=== PATIENT | female | born 2000 | race American Indian/Alaskan Native ===

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

== ENCOUNTER 2018-06-30 18:57 | Emergency (ER) | payer MEDICAID ==
[2018-06-30 19:34] VITALS: BP 120/67
--- NOTE | 2018-06-30 19:46 | Emergency Department Report ---
Blank Doc - Documentation Documentation: This is a 17-year-old female that presents with dizziness. Stated has intermi ttent SOB but denies any SOB now. Denies any chest pain. This initial assessment/diagnostic orders/clinical plan/treatment(s) is/are subject to change based on patient's health status, clinical progression and re- assessment by fellow clinical providers in the ED. Further treatment and workup at subsequent clinical providers discretion. Patient/guardians urged not to elope from the ED as their condition may be serious if not clinically assessed and managed. Initial orders include: 1- Patient sent to [facility] for further evaluation and treatment 2- labs
[2018-06-30 20:10] LABS: Basophils % (Auto) 0.4 % (0.0-1.8); Eosinophils # (Auto) 0.7 K/mm3 (0.0-0.4); Eosinophils % (Auto) 7.3 % (0.0-4.3); Hematocrit 35.8 % (30.3-42.9); Hemoglobin 11.9 gm/dl (10.1-14.3); Lymphocytes # (Auto) 2.5 K/mm3 (1.2-5.4); Lymphocytes % (Auto) 26.8 % (13.4-35.0); Mean Corpuscular HGB Conc 33 % (30-34); Mean Corpuscular Volume 89 fl (79-97); Monocytes # (Auto) 0.9 K/mm3 (0.0-0.8); Monocytes % (Auto) 9.2 % (0.0-7.3); Platelet Count 336 K/mm3 (140-440); Red Blood Count 4.02 M/mm3 (3.65-5.03); Red Cell Distribution Width 13.7 % (13.2-15.2)
[2018-06-30 20:36] LABS: BUN/Creatinine Ratio 14; Blood Urea Nitrogen 7 mg/dL (7-17); Calcium 8.9 mg/dL (8.4-10.2); Hemolysis Index 7
--- NOTE | 2018-06-30 21:19 | Emergency Department Report ---
ED Dysuria HPI - HPI Chief Complaint: Dyspnea/Respdistress Stated Complaint: SOB/DIZZINESS Time Seen by Provider: 06/30/18 19:44 Duration: 5 Days Severity: None Symptoms: Dysuria: No, Frequency: No, Suprapubic Pain: No, Flank Pain: No, Fever: No, Hematuria: No, Abdominal Pain: No, Previous UTI's: No Other History: Patient is a 17-year-old female comes to the ER today with vague complaints of not feeling well. She has asthma as a child. She's had no surgeries. She is on no home medications. She has no allergies to medications. Her last menstrual cycle was 2018. ED Review of Systems ROS: Stated complaint: SOB/DIZZINESS Other details as noted in HPI Comment: All other systems reviewed and negative ED Past Medical Hx - Past Medical History Previous Medical History?: Yes Hx Asthma: Yes - Surgical History Past Surgical History?: No - Family History Family history: no significant - Social History Smoking Status: Never Smoker Substance Use Type: None - Medications Home Medications: Home Medications Medication Instructions Recorded Confirmed Last Taken Type Butalb/Acetamin/Caff 50-325-40 1 tab PO Q8HR PRN #20 tablet 05/07/16 Unknown Rx [Fioricet] Ondansetron [Zofran ODT TAB] 4 mg PO Q8HR #12 tab.rapdis 05/07/16 Unknown Rx Dysuria Exam - Exam General: Vital signs noted. No distress. Alert and acting appropriately. Exam: Yes Moist Mucous Membranes, No CVA Tenderness, No Abdominal Tenderness, No Rigidity or Guarding Labs: Lab Results 06/30/18 06/30/18 06/30/18 Range/Units 19:53 19:53 19:53 WBC 9.5 (4.5-11.0) K/mm3 RBC 4.02 (3.65-5.03) M/mm3 Hgb 11.9 (10.1-14.3) gm/dl Hct 35.8 (30.3-42.9) % MCV 89 (79-97) fl MCH 30 (28-32) pg MCHC 33 (30-34) % RDW 13.7 (13.2-15.2) % Plt Count 336 (140-440) K/mm3 Lymph % (Auto) 26.8 (13.4-35.0) % [place] % (Auto) 9.2 H (0.0-7.3) % Eos % (Auto) 7.3 H (0.0-4.3) % Baso % (Auto) 0.4 (0.0-1.8) % Lymph # 2.5 (1.2-5.4) K/mm3 [place] # 0.9 H (0.0-0.8) K/mm3 Eos # 0.7 H (0.0-0.4) K/mm3 Baso # 0.0 (0.0-0.1) K/mm3 Seg Neutrophils % 56.3 (40.0-70.0) % Seg Neutrophils # 5.3 (1.8-7.7) K/mm3 Sodium 136 L (137-145) mmol/L Potassium 4.0 (3.6-5.0) mmol/L Chloride 101.3 (98-107) mmol/L Carbon Dioxide 24 (22-30) mmol/L Anion Gap 15 mmol/L BUN 7 (7-17) mg/dL Creatinine 0.5 L (0.7-1.2) mg/dL Estimated GFR > 60 ml/min BUN/Creatinine Ratio 14 % Glucose 80 (65-100) mg/dL Calcium 8.9 (8.4-10.2) mg/dL HCG, Qual Positive (Negative) ED Course Vital Signs 06/30/18 19:30 Temperature 98.8 F Pulse Rate 94 H Respiratory 16 Rate Blood Pressure 120/67 O2 Sat by Pulse 99 Oximetry ED Medical Decision Making - Lab Data Result diagrams: 06/30/18 19:53 06/30/18 19:53 - Medical Decision Making Labs 06/30/18 06/30/18 06/30/18 19:53 19:53 19:53 WBC 9.5 RBC 4.02 Hgb 11.9 Hct 35.8 MCV 89 MCH 30 MCHC 33 RDW 13.7 Plt Count 336 Lymph % (Auto) 26.8 [place] % (Auto) 9.2 H Eos % (Auto) 7.3 H Baso % (Auto) 0.4 Lymph # 2.5 [place] # 0.9 H Eos # 0.7 H Baso # 0.0 Seg Neutrophils % 56.3 Seg Neutrophils # 5.3 Sodium 136 L Potassium 4.0 Chloride 101.3 Carbon Dioxide 24 Anion Gap 15 BUN 7 Creatinine 0.5 L Estimated GFR > 60 BUN/Creatinine Ratio 14 Glucose 80 Calcium 8.9 HCG, Qual Positive Vital Signs 06/30/18 19:30 Temperature 98.8 F Pulse Rate 94 H Respiratory 16 Rate Blood Pressure 120/67 O2 Sat by Pulse 99 Oximetry Discussed with patient her positive test. She was not surprised and in fact expected this because her period has been late. Patient has been educated on and care of herself during . She's been advised no alcohol or drugs or tobacco. This is her first . She will be given a follow-up appointment with a ENRICHMENT ASSISTANT. She denies any abdominal pain, back pain or vaginal bleeding or discharge. Critical care attestation.: If time is entered above; I have spent that time in minutes in the direct care of this critically ill patient, excluding procedure time. ED Disposition Clinical Impression: Disposition: DC-01 TO HOME OR SELFCARE Is pt being admited?: No Does the pt Need Aspirin: No Condition: Stable Instructions: (ED) Referrals: MATTHEW IVERSON MD [Staff Physician] - 3-5 Days Time of Disposition: 21:18
[2018-06-30 21:41] LABS: Bilirubin,Urine NEG (Negative); Blood,Urine NEG (Negative); Color,Urine Straw (Yellow); Protein,Urine <15 mg/dL mg/dL (Negative); RBC,Urine < 1.0 /HPF (0.0-6.0); Urobilinogen,Urine < 2.0 mg/dL (<2.0); WBC,Urine < 1.0 /HPF (0.0-6.0)
== END 2018-06-30 21:24 | disposition home or self-care (01) ==
LOC: ED 18:57
DX: O26.891 Other specified pregnancy related conditions, first trimester (principal); R30.0 Dysuria; J45.909 Unspecified asthma, uncomplicated; Z3A.01 Less than 8 weeks gestation of pregnancy
CPT/HCPCS: 36415; 80048; 81001; 84703; 85025

== ENCOUNTER 2018-07-24 20:50 | Emergency (ER) | payer MEDICAID, OTHER ==
[2018-07-24 21:03] VITALS: BP 116/75
--- NOTE | 2018-07-24 21:10 | Emergency Department Report ---
Blank Doc - Documentation Documentation: 17 y/o female comes in for left leg swelling and pain for 2 days. Patient is 8 weeks preg. No long travel in plane or car. Not taking any control. Patient reports that she feels faint when the pain get bad.
== END 2018-07-25 00:43 | disposition left against medical advice (07) ==
LOC: ED 20:50
DX: R20.0 Anesthesia of skin (principal); Z53.21 Procedure and treatment not carried out due to patient leaving prior to being seen by health care provider

== ENCOUNTER 2018-09-14 19:59 | Emergency (ER) | payer OTHER ==
--- NOTE | 2018-09-14 20:07 | Emergency Department Report ---
Blank Doc - Documentation Documentation: This is a 18-year-old female that presents with chest pain and SOB with radiat ion to back. Patient is about 17 weeks . This initial assessment/diagnostic orders/clinical plan/treatment(s) is/are subject to change based on patient's health status, clinical progression and re- assessment by fellow clinical providers in the ED. Further treatment and workup at subsequent clinical providers discretion. Patient/guardians urged not to elope from the ED as their condition may be serious if not clinically assessed and managed. Initial orders include: 1- Patient sent to [facility] for further evaluation and treatment 2- EKG 3- labs
[2018-09-14 20:44] LABS: Basophils % (Auto) 0.5 % (0.0-1.8); Eosinophils # (Auto) 0.3 K/mm3 (0.0-0.4); Eosinophils % (Auto) 2.8 % (0.0-4.3); Hematocrit 30.2 % (30.3-42.9); Hemoglobin 10.5 gm/dl (10.1-14.3); Lymphocytes # (Auto) 2.1 K/mm3 (1.2-5.4); Lymphocytes % (Auto) 22.8 % (13.4-35.0); Mean Corpuscular HGB Conc 35 % (30-34); Mean Corpuscular Volume 89 fl (79-97); Monocytes # (Auto) 0.6 K/mm3 (0.0-0.8); Monocytes % (Auto) 6.2 % (0.0-7.3); Platelet Count 285 K/mm3 (140-440); Red Blood Count 3.41 M/mm3 (3.65-5.03); Red Cell Distribution Width 13.5 % (13.2-15.2)
[2018-09-14 20:48] LABS: INR 1.11 (0.87-1.13)
[2018-09-14 20:49] LABS: Partial Thromboplastin Time 26.1 Sec. (24.2-36.6)
[2018-09-14 21:13] LABS: BUN/Creatinine Ratio 8; Blood Urea Nitrogen 4 mg/dL (7-17); Calcium 8.8 mg/dL (8.4-10.2); Hemolysis Index 3
--- NOTE | 2018-09-14 23:43 | Emergency Department Report ---
ED Chest Pain HPI - General Chief Complaint: Chest Pain Stated Complaint: SOB CHEST PAIN Time Seen by Provider: 09/14/18 20:06 Source: patient Mode of arrival: Ambulatory Limitations: No Limitations - History of Present Illness Initial Comments: This is a 18-year-old -[place]ov[place] female who presents to the emergency room with left-sided chest pain radiating to bag since Thursday. Patient also reported shortness of breath which is worse with deep breaths. Past medical history of asthma. Patient states she hasn't had any issues with this several years so she don't have an inhaler. The patient is 17 weeks and followed by [facility]. MD Complaint: chest pain -: This morning Onset: during exertion Pain Location: left chest Pain Radiation: back Severity: mild Severity scale (0 -10): 3 Quality: sharp Consistency: intermittent Improves With: remaining still Worsens With: exertion Other Symptoms: denies: cough, fever, syncope, rash, acid taste in mouth, leg swelling, palpitations, burping Treatments Prior to Arrival: none Aspirin use within the Past 7 Days: (0) No - Related Data On Oral Contraceptives: No Previous Rx's Medication Instructions Recorded Last Taken Type Butalb/Acetamin/Caff 50-325-40 1 tab PO Q8HR PRN #20 tablet 05/07/16 Unknown Rx [Fioricet] Ondansetron [Zofran ODT TAB] 4 mg PO Q8HR #12 tab.rapdis 05/07/16 Unknown Rx Allergies Allergy/AdvReac Type Severity Reaction Status Date / Time apple Allergy Angioedema Verified 05/07/16 13:53 Fish Containing Products Allergy Anaphylaxis Verified 05/07/16 13:53 Heart Score - HEART Score History: Slightly suspicious EKG: Normal Age: < 45 Risk factors: No known risk factors Troponin: < normal limit HEART Score: 0 - Critical Actions Critical Actions: 0-3 pts:0.9-1.7%risk of adverse cardiac event.Candidate for discharge ED Review of Systems ROS: Stated complaint: SOB CHEST PAIN Other details as noted in HPI Constitutional: denies: chills, fever ENT: denies: ear pain, throat pain Respiratory: SOB with exertion. denies: cough, shortness of breath, wheezing Cardiovascular: chest pain. denies: palpitations Gastrointestinal: denies: abdominal pain, nausea, diarrhea Musculoskeletal: denies: back pain, joint swelling, arthralgia Skin: denies: rash, lesions Neurological: denies: headache, weakness, paresthesias Psychiatric: denies: anxiety, depression ED Past Medical Hx - Past Medical History Previous Medical History?: Yes Hx Asthma: Yes - Surgical History Past Surgical History?: No - Social History Smoking Status: Never Smoker Substance Use Type: None - Medications Home Medications: Home Medications Medication Instructions Recorded Confirmed Last Taken Type Butalb/Acetamin/Caff 50-325-40 1 tab PO Q8HR PRN #20 tablet 05/07/16 Unknown Rx [Fioricet] Ondansetron [Zofran ODT TAB] 4 mg PO Q8HR #12 tab.rapdis 05/07/16 Unknown Rx ED Physical Exam - General Limitations: No Limitations General appearance: alert, in no apparent distress, obese - Respiratory Respiratory exam: Present: normal lung sounds bilaterally, chest wall tenderness (tenderness along the left costochondral joint). Absent: respiratory distress, wheezes, rales, rhonchi, stridor - Cardiovascular Cardiovascular Exam: Present: regular rate, normal rhythm. Absent: systolic murmur, diastolic murmur, rubs, gallop - GI/Abdominal GI/Abdominal exam: Present: soft, normal bowel sounds - Extremities Exam Extremities exam: Present: normal inspection, full ROM, normal capillary refill. Absent: tenderness, pedal edema, joint swelling, calf tenderness - Neurological Exam Neurological exam: Present: alert, oriented X3, normal gait - Psychiatric Psychiatric exam: Present: normal affect, normal mood - Skin Skin exam: Present: warm, dry, intact, normal color. Absent: rash ED Course Vital Signs 09/14/18 09/15/18 09/15/18 20:06 00:26 00:34 Temperature 98.5 F Pulse Rate 103 H Pulse Rate [ 81 87 Bilateral Throughout] Respiratory 18 Rate Respiratory 16 16 Rate [Bilateral Throughout] Blood Pressure 117/57 O2 Sat by Pulse 97 Oximetry ED Medical Decision Making - Lab Data Result diagrams: 09/14/18 20:29 09/14/18 20:29 Lab Results 09/14/18 09/14/18 09/14/18 Range/Units 20:29 20:29 20:29 WBC 9.1 (4.5-11.0) K/mm3 RBC 3.41 L (3.65-5.03) M/mm3 Hgb 10.5 (10.1-14.3) gm/dl Hct 30.2 L (30.3-42.9) % MCV 89 (79-97) fl MCH 31 (28-32) pg MCHC 35 H (30-34) % RDW 13.5 (13.2-15.2) % Plt Count 285 (140-440) K/mm3 Lymph % (Auto) 22.8 (13.4-35.0) % [place] % (Auto) 6.2 (0.0-7.3) % Eos % (Auto) 2.8 (0.0-4.3) % Baso % (Auto) 0.5 (0.0-1.8) % Lymph # 2.1 (1.2-5.4) K/mm3 [place] # 0.6 (0.0-0.8) K/mm3 Eos # 0.3 (0.0-0.4) K/mm3 Baso # 0.0 (0.0-0.1) K/mm3 Seg Neutrophils % 67.7 (40.0-70.0) % Seg Neutrophils # 6.1 (1.8-7.7) K/mm3 PT 14.0 (12.2-14.9) Sec. INR 1.11 (0.87-1.13) APTT 26.1 (24.2-36.6) Sec. D-Dimer 549.89 H (0-234) ng/mlDDU Sodium 140 (137-145) mmol/L Potassium 3.5 L (3.6-5.0) mmol/L Chloride 106.4 (98-107) mmol/L Carbon Dioxide 22 (22-30) mmol/L Anion Gap 15 mmol/L BUN 4 L (7-17) mg/dL Creatinine 0.5 L (0.7-1.2) mg/dL Estimated GFR > 60 ml/min BUN/Creatinine Ratio 8 % Glucose 109 H (65-100) mg/dL Calcium 8.8 (8.4-10.2) mg/dL Troponin T < 0.010 (0.00-0.029) ng/mL 09/14/18 Range/Units 22:38 WBC (4.5-11.0) K/mm3 RBC (3.65-5.03) M/mm3 Hgb (10.1-14.3) gm/dl Hct (30.3-42.9) % MCV (79-97) fl MCH (28-32) pg MCHC (30-34) % RDW (13.2-15.2) % Plt Count (140-440) K/mm3 Lymph % (Auto) (13.4-35.0) % [place] % (Auto) (0.0-7.3) % Eos % (Auto) (0.0-4.3) % Baso % (Auto) (0.0-1.8) % Lymph # (1.2-5.4) K/mm3 [place] # (0.0-0.8) K/mm3 Eos # (0.0-0.4) K/mm3 Baso # (0.0-0.1) K/mm3 Seg Neutrophils % (40.0-70.0) % Seg Neutrophils # (1.8-7.7) K/mm3 PT (12.2-14.9) Sec. INR (0.87-1.13) APTT (24.2-36.6) Sec. D-Dimer (0-234) ng/mlDDU Sodium (137-145) mmol/L Potassium (3.6-5.0) mmol/L Chloride (98-107) mmol/L Carbon Dioxide (22-30) mmol/L Anion Gap mmol/L BUN (7-17) mg/dL Creatinine (0.7-1.2) mg/dL Estimated GFR ml/min BUN/Creatinine Ratio % Glucose (65-100) mg/dL Calcium (8.4-10.2) mg/dL Troponin T < 0.010 (0.00-0.029) ng/mL - EKG Data -: No EKG Interpreted by Me (EKG Interpreted by Attending) EKG shows normal: sinus rhythm Rate: normal - Medical Decision Making Patient was examined by me. Vitals are normal and patient is in no acute distress. Obtained labs. The d-dimer is 549 and patient is 17 weeks but patient does have risk factors were familiar history of DVTs. She has past medical history of asthma. Heart score is 0. An EKG was obtained and dictated by radiologist normal sinus rhythm. Given DuoNeb treatment. Will reassess prior to discharge. Patient ambulated throughout Fast track and no signs of SOB. Patient reportedly is feeling better and chest pain has resolved. The pain to the left costochondral joint is reproducible. This chest pain may be related to costochondritis. She was instructed to follow-up with her [facility] SWIM CO[facility] at [facility] in the morning. Instructed to return to the emergency room with worsening symptoms. Patient was discharged home stable. Critical care attestation.: If time is entered above; I have spent that time in minutes in the direct care of this critically ill patient, excluding procedure time. ED Disposition Clinical Impression: Shortness of breath with , Costochondral chest pain Chest pain Qualifiers: Chest pain type: other chest pain Qualified Code(s): R07.89 - Other chest pain; R07.8 - Other chest pain Disposition: TO HOME OR SELFCARE Is pt being admited?: No Does the pt Need Aspirin: No Condition: Stable Instructions: Chest Pain (ED), Costochondritis (ED) Additional Instructions: Follow-up with her WOMEN'S SWIM COACH in a few hours after discharge. Return to the emergency room if worsening shortness of breath or chest pain. Referrals: [facility] [Provider Group] - 3-5 Days Time of Disposition: 00:47
[2018-09-14] MEDS ORDERED: DUONEB *Not for PRN Use IH ONE (23:50)
[2018-09-15 01:06] VITALS: BP 116/82
== END 2018-09-15 01:06 | disposition home or self-care (01) ==
LOC: ED 19:59
DX: O26.892 Other specified pregnancy related conditions, second trimester (principal); R07.89 Other chest pain; R06.02 Shortness of breath; O99.512 Diseases of the respiratory system complicating pregnancy, second trimester; J45.909 Unspecified asthma, uncomplicated; Z79.899 Other long term (current) drug therapy; Z91.013 Allergy to seafood; Z91.018 Allergy to other foods; Z3A.17 17 weeks gestation of pregnancy
CPT/HCPCS: 36415; 80048; 84484; 85025; 85379; 85610; 85730; 93005; 93010; 94640; 99284

== ENCOUNTER 2018-10-17 20:40 | Outpatient (CLI) | payer OTHER ==
[2018-10-17] MEDS ORDERED: LACTATED RINGERS 1,000 ML IV ONE (20:52)
[2018-10-17 23:03] VITALS: BP 104/57
[2018-10-17 23:08] LABS: Bilirubin,Urine NEG (Negative); Blood,Urine NEG (Negative); Color,Urine Yellow (Yellow); Mucus,Urine 1+ /HPF; Protein,Urine <15 mg/dL mg/dL (Negative); WBC,Urine < 1.0 /HPF (0.0-6.0)
== END 2018-10-17 23:37 | disposition home or self-care (01) ==
LOC: TRG 20:40
PROVIDERS: ATTEND Obstetrics & Gynecology
DX: O26.892 Other specified pregnancy related conditions, second trimester (principal); R42 Dizziness and giddiness; R10.30 Lower abdominal pain, unspecified; O47.02 False labor before 37 completed weeks of gestation, second trimester; O99.512 Diseases of the respiratory system complicating pregnancy, second trimester; J45.909 Unspecified asthma, uncomplicated; Z3A.20 20 weeks gestation of pregnancy
CPT/HCPCS: 81001; 82962; 96360; J7120

== ENCOUNTER 2018-11-20 22:40 | Outpatient (CLI) | payer OTHER ==
[2018-11-20 23:08] VITALS: BP 116/61
[2018-11-20] MEDS ORDERED: LACTATED RINGERS 1,000 ML IV ONE (23:34)
[2018-11-21 00:20] LABS: Bilirubin,Urine NEG (Negative); Blood,Urine NEG (Negative); Color,Urine Yellow (Yellow); Mucus,Urine 3+ /HPF; Protein,Urine <15 mg/dL mg/dL (Negative); Urobilinogen,Urine < 2.0 mg/dL (<2.0)
== END 2018-11-21 00:15 | disposition home or self-care (01) ==
LOC: TRG 22:40
PROVIDERS: ATTEND Obstetrics & Gynecology
DX: O60.02 Preterm labor without delivery, second trimester (principal); O26.892 Other specified pregnancy related conditions, second trimester; R10.2 Pelvic and perineal pain; M54.5 Low back pain; Z3A.27 27 weeks gestation of pregnancy; Z87.891 Personal history of nicotine dependence
CPT/HCPCS: 81001

== ENCOUNTER 2019-01-06 02:26 | Outpatient (CLI) | payer OTHER ==
[2019-01-06] MEDS ORDERED: BICITRA ORAL LIQD 30ML PO ONE (03:03)
[2019-01-06 03:15] VITALS: BP 125/87
== END 2019-01-06 03:48 | disposition home or self-care (01) ==
LOC: TRG 02:26
PROVIDERS: ATTEND Obstetrics & Gynecology
DX: O47.03 False labor before 37 completed weeks of gestation, third trimester (principal); R10.9 Unspecified abdominal pain; Z3A.33 33 weeks gestation of pregnancy
CPT/HCPCS: 59025

== ENCOUNTER 2019-01-08 17:48 | Outpatient (CLI) | payer OTHER ==
[2019-01-08] MEDS ORDERED: LACTATED RINGERS 1,000 ML ONE (18:37)
[2019-01-08] MEDS ORDERED: BICITRA ORAL LIQD 30ML PO ONE (18:49)
[2019-01-08] MEDS ORDERED: LACTATED RINGERS 500 ML IV ONE (20:00)
[2019-01-08 20:01] VITALS: BP 135/63
== END 2019-01-08 21:00 | disposition home or self-care (01) ==
LOC: TRG 17:48
PROVIDERS: ATTEND Obstetrics & Gynecology
DX: O26.893 Other specified pregnancy related conditions, third trimester (principal); R10.84 Generalized abdominal pain; O47.03 False labor before 37 completed weeks of gestation, third trimester; Z3A.32 32 weeks gestation of pregnancy
CPT/HCPCS: 99212; G0463; J7120

== ENCOUNTER 2019-01-28 12:14 | Outpatient (CLI) | payer OTHER ==
--- NOTE | 2019-01-28 13:35 | Ultrasound Report ---
ULTRASOUND OBSTETRIC LIMITED INDICATION / CLINICAL INFORMATION: for NAILA. TECHNIQUE: Transabdominal ultrasound imaging. COMPARISON: None available. FINDINGS: HEART RATE (beats per minute): 179 AMNIOTIC FLUID INDEX (cm) = 7.1 PRESENTATION: Cephalic. ADDITIONAL FINDINGS: None. IMPRESSION: No significant abnormality. Signer Name: Duane Roberts Jr, MD Signed: 01/28/2019 1:31 PM Workstation Name: [id number]
[2019-01-28 13:37] VITALS: BP 118/67
== END 2019-01-28 13:37 | disposition home or self-care (01) ==
LOC: TRG 12:14
PROVIDERS: ATTEND Obstetrics & Gynecology
DX: O47.03 False labor before 37 completed weeks of gestation, third trimester (principal); Z3A.36 36 weeks gestation of pregnancy
CPT/HCPCS: 59025; 76815

== ENCOUNTER 2019-02-20 20:10 | Outpatient (CLI) | payer OTHER ==
[2019-02-20 21:08] VITALS: BP 130/60
== END 2019-02-20 21:30 | disposition home or self-care (01) ==
LOC: TRG 20:10
PROVIDERS: ATTEND Obstetrics & Gynecology
DX: O47.1 False labor at or after 37 completed weeks of gestation (principal); Z3A.38 38 weeks gestation of pregnancy
CPT/HCPCS: 59025

== ENCOUNTER 2019-02-23 15:41 | Inpatient (IN) | payer OTHER ==
[2019-02-23] MEDS ORDERED: ONDANSETRON 4 MG/2 ML INJ IV PRN (19:57)
[2019-02-23] MEDS ORDERED: NalbUPHINE 10 MG/1 ML INJ IV PRN (19:57)
[2019-02-23] MEDS ORDERED: TERBUTALINE 1 MG/1 ML INJ IVP PRN (19:57)
[2019-02-23] MEDS ORDERED: ePHEDrine SULFATE 50 MG/1 ML INJ IV PRN (19:57)
[2019-02-23] MEDS ORDERED: TERBUTALINE 1 MG/1 ML INJ SUB-Q PRN (19:57)
[2019-02-23] MEDS ORDERED: BUTORPHANOL 2 MG/1 ML INJ IV PRN (19:57)
[2019-02-23] MEDS ORDERED: LIDOCAINE (2%) 20 MG/1 ML VIAL 20 ML MDV INFILTRATI ONE (19:57)
[2019-02-23] MEDS ORDERED: fentaNYL 100 MCG/2 ML INJ IV PRN (19:57)
[2019-02-23] MEDS ORDERED: MINERAL OIL 30 ML ORAL LIQD PO PRN (19:57)
[2019-02-23] MEDS ORDERED: OXYTOCIN 20 UNIT/1000ML DRIP 20 UNITS/1,000 ML BAG IV SCH (20:00)
[2019-02-23] MEDS ORDERED: AMPICILLIN/NS 2 GM/100 ML 2 GM/100 ML BAG IV ONE (20:00)
[2019-02-23] MEDS ORDERED: DINOPROSTONE 10 MG VAG SUPP VG ONE (20:00)
[2019-02-23 21:02] LABS: Hematocrit 31.8 % (30.3-42.9); Hemoglobin 10.4 gm/dl (10.1-14.3); Mean Corpuscular HGB Conc 33 % (30-34); Mean Corpuscular Volume 86 fl (79-97); Platelet Count 285 K/mm3 (140-440); Red Cell Distribution Width 13.8 % (13.2-15.2)
--- NOTE | 2019-02-23 23:42 | History and Physical Report ---
History of Present Illness Date of examination: 02/23/19 Chief complaint: sent from the office secondary to oligohydramnios History of present illness: Pt is a 18 year old -[place] female primigravida JERARDO 03/01/19 at 39w1d who presents from [facility] office with BPP 6/10 (-2 for fluid volume and NST reactivity). She denies vaginal bleeding or leakage of fluid. She has had care at [facility] since 22 wks complicated by late entry to care, morbid obesity, asthma, chlamydia treated with negative test of cure. She is GBS negative. Past History Past Medical History: asthma Past Surgical History: no surgical history ACADEMIC DEPARTMENT CHAIR History: chlamydia (treated with negative test of cure ) Family/Genetic History: cancer Social history: no significant social history - Obstetrical History Expected Date of Delivery: 03/01/19 Actual Gestation: 39 Week(s) 1 Day(s) : 1 Medications and Allergies Allergies Allergy/AdvReac Type Severity Reaction Status Date / Time almond Allergy Anaphylaxis Verified 01/28/19 12:50 apple Allergy Angioedema Verified 01/28/19 12:50 Fish Containing Products Allergy Anaphylaxis Verified 01/28/19 12:50 sunflower seed Allergy Anaphylaxis Verified 01/28/19 12:50 Home Medications Medication Instructions Recorded Confirmed Last Taken Type Butalb/Acetamin/Caff 50-325-40 1 tab PO Q8HR PRN #20 tablet 05/07/16 01/28/19 Rx [Fioricet] Ondansetron [Zofran ODT TAB] 4 mg PO Q8HR #12 tab.rapdis 05/07/16 01/28/19 01/28/19 Rx ALBUTEROL Inhaler (OR & NICU) 2 puff IH QID PRN #1 inhalation 09/15/18 01/28/19 Unknown Rx [ProAir HFA Inhaler] Active Meds: Active Medications Butorphanol Tartrate (Stadol) 2 mg IV Q2H PRN PRN Reason: Pain , Severe (7-10) Ephedrine Sulfate (Ephedrine Sulfate) 10 mg IV Q2M PRN PRN Reason: Hypotension Fentanyl (Sublimaze) 100 mcg IV Q2H PRN PRN Reason: Labor Pain Oxytocin/Sodium Chloride (Pitocin/Ns 20 Unit/1000ml Drip) 20 units in 1,000 mls @ 125 mls/hr IV DIRECT BETSY Lactated Ringer's (Lactated Ringers) 1,000 mls @ 125 mls/hr IV DIRECT BETSY Ampicillin Sodium (Ampicillin/Ns 1 Gm/50 Ml) 1 gm in 50 mls @ 100 mls/hr IV Q4HR BETSY; Protocol Mineral Oil (Mineral Oil) 30 ml PO QHS PRN PRN Reason: Constipation Nalbuphine HCl (Nalbuphine) 10 mg IV Q2H PRN PRN Reason: Pain, Moderate (4-6) Ondansetron HCl (Zofran) 4 mg IV Q8H PRN PRN Reason: Nausea And Vomiting Terbutaline Sulfate (Brethine) 0.25 mg SUB-Q ONCE PRN PRN Reason: Hyperstimulation/Hypertonicity Terbutaline Sulfate (Brethine) 0.25 mg IVP ONCE PRN PRN Reason: Hyperstimulation/Hypertonicity Review of Systems All systems: negative - Vital Signs Vital signs: Vital Signs Pulse BP 82 130/78 02/23/19 17:59 02/23/19 17:59 Temp Pulse Resp BP Pulse Ox 97.4 F L 90 18 129/96 99 02/23/19 19:00 02/23/19 22:54 02/23/19 19:00 02/23/19 22:54 02/23/19 19:00 - Physical Exam Breasts: Positive: deferred Cardiovascular: Regular rate Lungs: Positive: Clear to auscultation Abdomen: Positive: soft (obese, gravid ) Genitourinary (Female): Positive: normal external genitalia Vagina: Positive: discharge (yeast ) Uterus: Positive: enlarged (gravid ) Extremities: Positive: normal - Obstetrical FHR: auscultation normal Uterine Contraction Monitor Mode: External Cervical Dilatation: 0 Uterine Contraction Pattern: Absent Uterine Tone Measurement Phase: Resting Uterine Contraction Intensity: Mild Results Result Diagrams: 02/23/19 20:51 All other labs normal. Assessment and Plan A: IUP at 39w1d Oligohydramnios Morbid Obesity GBS Negative Chlamydia treated with negative test of cure Asthma P: Admit to labor and delivery Begin cervical ripening - Cervidil placed Closely monitor maternal and status
[2019-02-24] MEDS: AMPICILLIN/NS 1 GM/50 ML 1 GM/50 ML BAG IV SCH ×3 (02:00→06:00)
[2019-02-24] MEDS ORDERED: DINOPROSTONE 10 MG VAG SUPP VG ONE (13:51)
--- NOTE | 2019-02-24 13:52 | Progress Note ---
Assessment and Plan Samanta too frequently for Cytotec. Administer second dose of Cervidil. Continue to monitor. Anticipate . Subjective - Subjective Date of service: 02/24/19 Principal diagnosis: IOL for oligohydramnios and obesity Interval history: Pt is HD2 for IOL for oligohydramnios and obesity. FHT category 1. Membranes intact. Patient reports: contractions, no loss of fluid, no vaginal bleeding Objective - Vital Signs Vital Signs: Vital Signs - 12hr 02/24/19 02/24/19 02/24/19 01:51 02:22 02:51 Temperature Pulse Rate 83 75 95 H Blood Pressure 117/62 115/64 119/72 02/24/19 02/24/19 02/24/19 03:21 03:51 04:22 Temperature Pulse Rate 78 75 74 Blood Pressure 102/55 106/59 116/66 02/24/19 02/24/19 02/24/19 04:53 05:23 05:52 Temperature Pulse Rate 94 H 81 90 Blood Pressure 126/64 146/76 122/70 02/24/19 02/24/19 02/24/19 06:23 06:51 07:00 Temperature 97.6 F Pulse Rate 83 85 Blood Pressure 118/65 107/66 02/24/19 07:22 Temperature Pulse Rate 71 Blood Pressure 97/55 - Exam Abdomen: Present: soft FHR: category 1 Uterine Contraction Monitor Mode: External Cervical Dilatation: 0 Cervical Effacement Percentage: 0 station: -4 Uterine Contraction Frequency (min): 2-4 Uterine Contraction Pattern: Regular Uterine Tone Measurement Phase: Contraction Uterine Contraction Intensity: Mild - Labs Labs: Laboratory Results - last 24 hr 02/23/19 02/23/19 02/23/19 20:40 20:45 20:51 WBC 9.3 RBC 3.70 Hgb 10.4 Hct 31.8 MCV 86 MCH 28 MCHC 33 RDW 13.8 Plt Count 285 Syphilis IgG Antibody Non-reactive Blood Type A POSITIVE Antibody Screen Negative
[2019-02-24] MEDS ORDERED: miSOPROStol 25 MCG TAB PO SCH (14:00)
[2019-02-24] MEDS ORDERED: PROMETHAZINE 25 MG TAB PO PRN (22:49)
[2019-02-25] MEDS: LACTATED RINGERS 1,000 ML IV SCH ×2 (00:01→11:05)
[2019-02-25] MEDS ORDERED: miSOPROStol 25 MCG TAB PO PRN (04:35)
--- NOTE | 2019-02-25 09:09 | Progress Note ---
Assessment and Plan A/P HD3 IOL for oligo s/p cerdil x 2 cytotec GBS neg discussed failed IOL andrecommendation for primary csec discussed r/b/a which include bleeding, infection, damge to pelvic and non pelvic organs risk of anesthesia , risk of hysterectomy and patients questions answered and agrees to proceed with scheduled csec Subjective - Subjective Date of service: 02/25/19 Principal diagnosis: IOL for oligohydramnios and obesity Patient reports: movement normal, contractions, no new complaints, no loss of fluid, no vaginal bleeding Objective - Vital Signs Vital Signs: Vital Signs - 12hr 02/24/19 02/24/19 02/25/19 23:32 23:33 05:03 Temperature 98.1 F Pulse Rate 93 H 93 H 88 Respiratory 16 Rate Blood Pressure 123/72 118/69 Blood Pressure 123/72 [Left] 02/25/19 02/25/19 02/25/19 05:04 07:59 08:05 Temperature 98.3 F 98 F Pulse Rate 88 100 H 100 H Respiratory 16 16 Rate Blood Pressure 129/76 Blood Pressure 118/69 126/76 [Left] - Exam Breasts: normal Cardiovascular: Regular rate, Normal S1 Lungs: Clear to auscultation, Normal air movement Abdomen: Present: normal appearance, soft, normal bowel sounds. Absent: distention, tenderness, guarding Uterus: Present: normal FHR: category 1 Cervical Dilatation: 0 Uterine Contraction Pattern: Regular Extremities: normal Deep Tendon Reflex Grade: Normal +2
--- NOTE | 2019-02-25 10:02 | Anesthesia Consultation ---
Anesthesia Consult and Med Hx Date of service: 02/25/19 - Airway Anesthetic Teeth Evaluation: Good ROM Head & Neck: Adequate Mental/Hyoid Distance: Adequate Mallampati Class: Class II Intubation Access Assessment: Probably Good - Pulmonary Exam CTA: Yes - Cardiac Exam Cardiac Exam: RRR - Pre-Operative Health Status ASA Pre-Surgery Classification: ASA3 Proposed Anesthetic Plan: Spinal - Pulmonary Hx Asthma: Yes COPD: No Hx Pneumonia: No - Cardiovascular System Hx Hypertension: No - Central Nervous System Hx Seizures: No Hx Psychiatric Problems: No - Endocrine Hx Renal Disease: No Hx End Stage Renal Disease: No Hx Hypothyroidism: No Hx Hyperthyroidism: No - Hematic Hx Anemia: No Hx Sickle Cell Disease: No - Other Systems Hx Alcohol Use: No Hx Obesity: Yes
--- NOTE | 2019-02-25 10:03 | Anesthesia Day of Surgery ---
Anesthesia Day of Surgery - Day of Surgery Patient Examined: Yes Patient H&P Reviewed: Yes Patient is NPO: Yes
[2019-02-25] MEDS ORDERED: METOCLOPRAMIDE 10 MG/2 ML INJ IV SCH (10:58)
[2019-02-25] MEDS ORDERED: BICITRA ORAL LIQD 30ML PO SCH (10:58)
[2019-02-25] MEDS ORDERED: FAMOTIDINE 20 MG/2 ML INJ IV SCH (10:58)
[2019-02-25] MEDS ORDERED: LACTATED RINGERS 1,000 ML IV SCH (11:00)
[2019-02-25] MEDS ORDERED: ceFAZolin/Water 2 GM/20 ML 2 GM/20 ML SYRINGE IV NR (11:00)
[2019-02-25] MEDS ORDERED: OXYTOCIN 20 UNIT/1000ML DRIP 20 UNITS/1,000 ML BAG IV SCH ×2 (11:00→14:00)
[2019-02-25] MEDS ORDERED: WATER FOR IRRIG STERILE 1,500 ML BOTTLE IR ONE (11:48)
[2019-02-25] MEDS ORDERED: SODIUM CHLORIDE 0.9% IRR 1,500 ML BOTTLE IR ONE (11:48)
[2019-02-25] MEDS ORDERED: PHENYLEPHRINE/NS 1,000 MCG/10 ML SYRINGE (OR USE) IV ONE (12:18)
[2019-02-25] MEDS ORDERED: OXYTOCIN 10 UNIT/1 ML INJ ONE (12:18)
[2019-02-25] MEDS ORDERED: KETOROLAC 30 MG/1 ML INJ ONE (12:18)
[2019-02-25] MEDS ORDERED: DEXMEDETOMIDINE 200 MCG/2 ML VIAL IV ONE (12:18)
[2019-02-25] MEDS ORDERED: BUPIVACAINE/PF (0.5%) 5 MG/1 ML 30 ML VIAL INFILTRATI ONE (12:18)
[2019-02-25] MEDS ORDERED: ONDANSETRON 4 MG/2 ML INJ ONE (12:18)
--- NOTE | 2019-02-25 13:13 | Post Anesthesia Evaluation ---
- Post Anesthesia Evaluation Patient Participated: Yes Airway Patent: Yes Stable Respiratory Function: Yes Nausea/Vomiting: No Temp > 96.8F: Yes Pain Manageable: Yes Adequeate Hydration: Yes Anesthesia Complications: No Block Receding Appropriately: Yes
[2019-02-25] MEDS ORDERED: ACETAMINOPHEN 325 MG TAB PO PRN (13:34)
[2019-02-25] MEDS ORDERED: HYDROCORTISONE 25 MG RECTAL SUPP PR PRN (13:34)
[2019-02-25] MEDS ORDERED: MAGNESIUM HYDROXIDE (MOM) ORAL LIQD UDC PO PRN (13:34)
[2019-02-25] MEDS ORDERED: NALOXONE 0.4 MG/1 ML INJ IV PRN (13:34)
[2019-02-25] MEDS ORDERED: HYDROcodone/ACETAMINOPHEN 5-325 MG TAB PO PRN (13:34)
[2019-02-25] MEDS ORDERED: WITCH HAZEL/ GLYCERIN PAD TP PRN (13:34)
[2019-02-25] MEDS ORDERED: PROMETHAZINE 25 MG RECT SUPP PR PRN (13:34)
[2019-02-25] MEDS ORDERED: LANOLIN/ZINC/DIMETHICONE (LANSINOH) 7 GM TP PRN (13:34)
[2019-02-25] MEDS ORDERED: MORPHINE 4 MG/1 ML INJ IV PRN (13:34)
[2019-02-25] MEDS ORDERED: SENNOSIDES 8.6 MG TAB PO PRN (13:34)
[2019-02-25] MEDS ORDERED: SIMETHICONE 80 MG CHEW TAB PO PRN (13:34)
[2019-02-25] MEDS ORDERED: MORPHINE 2 MG/1 ML INJ IV PRN (13:34)
--- NOTE | 2019-02-25 13:40 | Procedure Note ---
OB Delivery Note - Delivery Date of Delivery: 02/25/19 Surgeon: VALENTINO DAI Estimated blood loss: 500cc - Section Preop diagnosis: other (Failed IOL) Postop diagnosis: same section procedure: section Disposition: PACU Complications: none Narrative: see op note - A at 1 minute: 8 at 5 minutes: 9 Infant Gender: Female (7 pounds 8.2 oz)
--- NOTE | 2019-02-25 13:44 | Operative Report ---
Operative Report Operative Report: DATE OF OPERATION: 02/25/19 PREOPERATIVE DIAGNOSES: 1. Intrauterine gestation at 39 weeks 2. MO 3. Failed IOL POSTOPERATIVE DIAGNOSES: 1-3 LOYDA Primary low transverse section. SURGEON:Adore Abbott MD ANESTHESIA: Spinal COMPLICATIONS: None. ESTIMATED BLOOD LOSS: 500 mL. DRAINS: Arreaga catheter to the bladder. SPECIMENS TO PATHOLOGY: Cord blood for routine testing. OPERATIVE FINDINGS: A viable female with Apgars of 8 and 9 and birthweight of 7 pounds 8.2oz was delivered from a cephalic presentation The cord contained 3 vessels. There was normal anterior fundal placenta. The amniotic fluid was clear. The uterus, fallopian tubes and ovaries were normal. DESCRIPTION OF OPERATION: The patient was brought to the operating suite in stable condition with epidural anesthesia on board and an indwelling catheter in place in the bladder. The patient was placed supine on the operating room table and rolled to her left side with a wedge. The abdomen was prepped and draped in standard fashion for section. After testing with forceps to assure an adequate anesthetic level, the surgery was commenced. We had counseled the patient extensively regarding the risks of the surgery including but not limited to stroke, embolus, phlebitis, pain, infection, hemorrhage, as well as injury to the and the internal organs such as the bowel, bladder, blood vessels, nerves, kidneys, ureters and pelvic organs. The patient was aware of the postoperative morbidity issues and recovery timeframes. The patient was aware she can form adhesions, which can result in obstruction of loop of bowel or ureter or chronic pain. She was aware that should she have hemorrhage and require blood transfusion, there was a small chance for exposure to hepatitis or HIV disease. With the scalpel, a Pfannenstiel skin incision was made. Dissection was carried down sharply through the subcutaneous tissues and fascia in a transverse plane with the scalpel, electrocautery and curved Mendoza scissors. The fascia was sharply freed up superiorly and inferiorly from the underlying rectus muscles, which were bluntly and sharply divided. The peritoneum was entered carefully in a clear space with a curved hemostat. The peritoneal incision was then extended vertically with Metzenbaum scissors. A retractor and bladder blade were placed. A bladder flap was created by incising transversely through the peritoneum and vesicouterine fold and then bluntly dissecting the bladder distally. With the scalpel, a low transverse hysterotomy was commenced. The serosa and myometrium were scored with the scalpel. The uterine cavity was actually entered bluntly with a curved hemostat. The uterine incision was then extended laterally with the prefinish operator's fingers. An intrauterine hand was placed and the head of the infant was brought up out of the pelvis into the uterine incision. With fundal pressure, she was delivered without difficulty. The nasopharynx and oropharynx were suctioned. The cord was doubly clamped and transected. The was then handed off to the nursery personnel. Apgars were good at 8 and 9. The placenta was manually removed. The uterine cavity was then curetted with a dry sponge and freed of the remaining membranes. The edges of the uterine incision were grasped with Levi clamps. With the massage and the Pitocin, the uterus began to firm up normally. The uterine incision was then closed in 2 layers of 0 Vicryl sutures. The first suture was placed to the endometrium and myometrium. The second suture was placed through the endopelvic fascia and also reincorporated the bladder flap peritoneum. Peritoneal lavage was then performed. The pelvis and gutters were irrigated and suctioned and cleared of all blood and clots and amniotic fluid. The uterine incision was reinspected to assure hemostasis. The uterus, tubes and ovaries were inspected and were normal. Once we were satisfied with the hemostasis, attention was turned to closure of the abdominal incision. The peritoneum, muscles and fascia were closed in layers using 0-Vicryl sutures. The subcutaneous tissue was closed with 3-0 plain sutures. The skin was closed with a subcuticular suture of 4-0 Vicryl followed by benzoin, Steri-Strips and a Telfa dressing. The patient was moved to the recovery room in stable condition with the Arreaga catheter draining clear urine. Instruments, sponge and needle counts were reported as correct. Estimated blood loss was 500 mL. There were no complications.
[2019-02-25] MEDS ORDERED: ACETAMINOPHEN 500 MG TAB PO SCH (14:00)
[2019-02-25] MEDS: D5W/LACTATED RINGERS 1,000 ML IV SCH (17:45)
[2019-02-25] MEDS: KETOROLAC 30 MG/1 ML INJ IV SCH (17:58)
[2019-02-26] MEDS ORDERED: AMMONIA INHALANT IH ONE (01:12)
[2019-02-26 01:14] LABS: Hematocrit 31.2 % (30.3-42.9); Hemoglobin 10.3 gm/dl (10.1-14.3)
[2019-02-26] MEDS: D5W/LACTATED RINGERS 1,000 ML IV SCH (01:22)
[2019-02-26] MEDS ORDERED: TETANUS,DIPH,PERTUSS(ACELL) VACCINE 0.5 ML SYRINGE IM ONE (06:00)
[2019-02-26] MEDS: oxyCODONE /ACETAMINOPHEN 5-325MG TAB PO PRN ×4 (06:24→23:51)
[2019-02-26 09:45] LABS: Hematocrit 29.6 % (30.3-42.9); Hemoglobin 9.8 gm/dl (10.1-14.3)
--- NOTE | 2019-02-26 10:24 | Progress Note ---
Assessment and Plan POD1 s/p primary LTCS Vital signs stable Mild anemia- repeat CBC Routine pp care D/c to home on POD3 Subjective - Subjective Date of service: 02/26/19 Principal diagnosis: IOL for oligohydramnios and obesity Interval history: Pt is POD1 s/p primary LTCS for failed IOL Patient reports: appetite normal, voiding normally, pain well controlled, flatus, ambulating normally [place]: doing well, nursing well (both), bottle feeding Objective - Vital Signs Latest vital signs: Vital Signs Temp Pulse Resp BP BP Pulse Ox 02/26/19 07:39 98.8 F 109 H 20 105/71 94 02/25/19 20:22 98.5 F 86 20 113/64 92 02/25/19 17:00 98.1 F 72 18 137/79 02/25/19 13:45 63 13 118/72 96 02/25/19 13:30 71 12 111/66 95 02/25/19 13:25 64 12 113/69 96 02/25/19 13:20 66 11 L 108/61 97 02/25/19 13:15 84 12 111/65 97 02/25/19 13:10 97.6 F 80 14 103/60 96 Intake and Output 02/25/19 02/26/19 02/26/19 23:59 07:59 15:59 Intake Total 120 1192.083 Output Total 400 800 Balance -280 392.083 Intake: IV 952.083 D5lr 1,000 ml @ 125 mls/ 952.083 hr IV DIRECT BETSY Rx#: [id number] Oral 120 240 Output: Urine 400 800 Indwelling Catheter 400 800 Other: Total, Intake Amount 120 240 Total, Output Amount 400 800 # Voids Void 0 - Exam Lungs: Present: Normal air movement Abdomen: Present: soft Uterus: Present: firm, fundal height below umbilicus. Absent: bogginess, tenderness Extremities: Present: normal Incision: Present: dressed - Labs Labs: Abnormal lab results 02/26/19 Range/Units 09:30 Hgb 9.8 L (10.1-14.3) gm/dl Hct 29.6 L (30.3-42.9) %
[2019-02-26] MEDS: PRENATAL VIT27-FE FUMARATE-FOLIC ACID VIT TAB PO SCH ×2 (10:33)
[2019-02-26] MEDS: IBUPROFEN 800 MG TAB PO PRN ×2 (10:34→17:14)
[2019-02-26] MEDS: FERROUS SULFATE 325 MG TAB PO SCH (11:18)
[2019-02-26] MEDS ORDERED: MEASLES, MUMPS & RUBELLA 12,500 UNIT/0.5 ML VACCINE SUB-Q ONE (14:36)
[2019-02-26] MEDS: ACETAMINOPHEN 325 MG TAB PO SCH ×2 (18:58→22:31)
[2019-02-26] MEDS: KETOROLAC 30 MG/1 ML INJ IV SCH (18:59)
[2019-02-27] MEDS: IBUPROFEN 800 MG TAB PO PRN ×2 (05:25→20:57)
[2019-02-27] MEDS: PRENATAL VIT27-FE FUMARATE-FOLIC ACID VIT TAB PO SCH (09:38)
[2019-02-27] MEDS: FERROUS SULFATE 325 MG TAB PO SCH (09:38)
[2019-02-27] MEDS: oxyCODONE /ACETAMINOPHEN 5-325MG TAB PO PRN ×2 (09:38→15:42)
--- NOTE | 2019-02-27 11:47 | Progress Note ---
Assessment and Plan POD2 s/p primary LTCS Vital signs stable Acute anemia Routine pp care D/c to home on POD3 Subjective - Subjective Date of service: 02/27/19 Principal diagnosis: s/p primary LTCS Interval history: Pt is POD2 s/p primary LTCS for failed IOL Patient reports: appetite normal, voiding normally, pain well controlled, bowel movement, ambulating normally : doing well, nursing well, bottle feeding (both) Objective - Vital Signs Latest vital signs: Vital Signs Temp Pulse Resp BP BP Pulse Ox 02/27/19 09:38 20 02/27/19 07:54 98.1 F 87 20 115/66 94 02/27/19 01:30 98.4 F 97 H 20 124/67 99 02/26/19 19:00 20 02/26/19 18:25 20 02/26/19 17:14 20 02/26/19 16:01 97.9 F 94 H 20 114/64 94 02/26/19 12:21 97.9 F 96 H 20 118/63 92 02/26/19 12:18 20 Intake and Output 02/26/19 02/27/19 02/27/19 23:59 07:59 15:59 Intake Total 240 360 120 Balance 240 360 120 Intake: Oral 240 120 Intake, Free Water 360 Other: Total, Intake Amount 240 120 Voiding Method Toilet # Voids Void 1 2 - Exam Lungs: Present: Normal air movement Abdomen: Present: soft Uterus: Present: firm, fundal height below umbilicus Extremities: Present: normal Incision: Present: dressed
[2019-02-27] MEDS: ACETAMINOPHEN 325 MG TAB PO SCH (18:45)
[2019-02-28] MEDS: IBUPROFEN 800 MG TAB PO PRN (05:07)
--- NOTE | 2019-02-28 07:59 | Progress Note ---
Assessment and Plan A: POD#3 s/p primary at term Bilateral lower extremity edema P: Routine care Anticipate discharge today with follow up in 2 wks for incision check Subjective - Subjective Date of service: 02/28/19 Principal diagnosis: s/p primary LTCS Interval history: Pt without unusual complaints. +flatus. Patient reports: appetite normal, voiding normally, pain well controlled, flatus, ambulating normally, no bowel movement : doing well Objective - Vital Signs Latest vital signs: Vital Signs Temp Pulse Resp BP Pulse Ox 02/28/19 00:24 98.2 F 102 H 20 120/66 94 02/27/19 16:11 98.8 F 110 H 20 131/80 97 02/27/19 15:42 20 02/27/19 09:38 20 Intake and Output 02/27/19 02/28/19 02/28/19 22:59 06:59 14:59 Intake Total 240 Balance 240 Intake: Oral 240 Other: Total, Intake Amount 240 # Voids Void 1 - Exam Breasts: Present: deferred Cardiovascular: Present: Regular rate Lungs: Present: Clear to auscultation Abdomen: Present: soft (obese ) Uterus: Present: fundal height below umbilicus Extremities: Present: edema (1+) Incision: Present: intact
[2019-02-28] MEDS ORDERED: FUROSEMIDE 40 MG TAB PO SCH (08:00)
[2019-02-28] MEDS: oxyCODONE /ACETAMINOPHEN 5-325MG TAB PO PRN (08:04)
[2019-02-28] MEDS: FERROUS SULFATE 325 MG TAB PO SCH (10:34)
[2019-02-28] MEDS: PRENATAL VIT27-FE FUMARATE-FOLIC ACID VIT TAB PO SCH (10:34)
--- NOTE | 2019-02-28 12:47 | Discharge Summary ---
Providers - Providers Date of Admission: 02/25/19 10:46 Date of discharge: 02/28/19 Attending physician: MATTHEW IVERSON Primary care physician: MATTHEW IVERSON Hospitalization Reason for admission: induction of labor Delivery: Procedure: section, primary low transverse Procedure details: Please see operative report Incision: intact Other procedures: none complications: none Discharge diagnosis: IUP at term delivered [place] baby: female Hospital course: Pt was admitted for induction of labor secondary to morbid obesity and ultimatel y underwent primary section which she tolerated well. Her postoperative course was uncomplicated and she met discharge criteria on POD#3. She will follow up in the office in 2 wks. Condition at discharge: Stable Disposition: DC-01 TO HOME OR SELFCARE - Discharge Diagnoses (1) Term of female Status: Acute (2) Morbid obesity Status: Acute Plan - Discharge Medications Prescriptions: Docusate Sodium [Colace] 100 mg PO BID PRN #45 capsule PRN Reason: Constipation Ferrous Sulfate [Ferrous Sulfate 324 MG] 324 mg PO BID #60 tablet. Ibuprofen [Motrin] 600 mg PO Q6H PRN #60 tablet PRN Reason: Pain oxyCODONE /ACETAMINOPHEN [Percocet 5/325] 1 tab PO Q6HR PRN #30 tablet PRN Reason: Pain - Provider Discharge Summary Activity: routine, no sex for 6 weeks, no heavy lifting 4 weeks, no strenuous exercise Diet: routine Instructions: routine Additional instructions: [] Smoking cessation referral if applicable(refer to patient education folder for contact #) [] Refer to [facility]'s [facility] Booklet Call your doctor immediately for: * Fever > 100.5 * Heavy vaginal bleeding ( >1 pad per hour) * Severe persistent headache * Shortness of breath * Reddened, hot, painful area to leg or breast * Drainage or odor from incision. * Keep incision clean and dry at all times and follow doctor's instructions regarding bathing/showering - Follow up plan Follow up: VALENTINO DAI MD [Staff Physician] - 03/14/19 (Please call to schedule appt for incision check )
[2019-02-28 17:12] VITALS: BP 105/80
== END 2019-02-28 17:00 | disposition home or self-care (01) | DRG 765 ==
LOC: TRG 15:41 → LD 15:42 → TRG 02-25 10:44 → LD 02-25 10:46 → OB 02-25 14:48
PROVIDERS: ADMIT Obstetrics & Gynecology; ATTEND Obstetrics & Gynecology
PROC: 10D00Z1 Extraction of Products of Conception, Low, Open Approach (ICD-10-PCS; principal; 2019-02-25)
PROC: 3E0234Z Introduction of Serum, Toxoid and Vaccine into Muscle, Percutaneous Approach (ICD-10-PCS; 2019-02-26)
PROC: 3E0134Z Introduction of Serum, Toxoid and Vaccine into Subcutaneous Tissue, Percutaneous Approach (ICD-10-PCS; 2019-02-26)
DX: O99.214 Obesity complicating childbirth (principal); O41.03X0 Oligohydramnios, third trimester, not applicable or unspecified; E66.01 Morbid (severe) obesity due to excess calories; J45.909 Unspecified asthma, uncomplicated; O99.52 Diseases of the respiratory system complicating childbirth; O99.02 Anemia complicating childbirth; O61.9 Failed induction of labor, unspecified; Z3A.39 39 weeks gestation of pregnancy; Z37.0 Single live birth; Z80.9 Family history of malignant neoplasm, unspecified; Z79.899 Other long term (current) drug therapy; Z23 Encounter for immunization
CPT/HCPCS: 36415; 59200; 85014; 85018; 85027; 86592; 86850; 86900; 86901; G0378; A6250; C1765; J0290; J0595; J1885; J2270; J2370; J2405; J2590; J2765; J3010; J3490; J7120; J7121; Q0169

== ENCOUNTER 2019-03-02 17:00 | Emergency (ER) | payer OTHER | END 2019-03-02 18:00 | disposition left against medical advice (07) | LOC: ED 17:00 | DX: R19.00 Intra-abdominal and pelvic swelling, mass and lump, unspecified site (principal); Z53.21 Procedure and treatment not carried out due to patient leaving prior to being seen by health care provider ==